=== PATIENT | female | born 1965 | race African-American/Black ===

== ENCOUNTER 2020-08-05 11:00 | Emergency (ER) | payer OTHER ==
[~2020-08-05] VITALS: Ht 165.1 cm; Wt 66.0 kg
[2020-08-05] MEDS ORDERED: CLON1TAB PO (11:18)
[2020-08-05] MEDS ORDERED: ESCI5TAB PO (11:18)
[2020-08-05] MEDS ORDERED: KETOROLAC 15MG/ML VIAL IV ONE (11:45)
[2020-08-05 12:10] LABS: BASOPHILS % 0.4 % (0.0-2.0); EOSINOPHILS % 2.1 % (0.0-5.0); HEMATOCRIT. 34.1 % (36.0-48.0); HEMOGLOBIN. 11.6 g/dL (12.0-16.0); LYMPHOCYTES % 44.6 % (20.0-50.0); MEAN CORPUSCULAR HEMOGLOBIN 29.1 pg (28.0-32.0); MEAN CORPUSCULAR VOLUME 85.3 fL (81.0-99.0); MEAN PLATELET VOLUME 7.5 fl (7.4-10.4); MONOCYTES % 7.4 % (2.0-8.0); NEUTROPHILS % 45.5 % (40.0-76.0); PLATELET 229 x1000/uL (130-400); RED BLOOD CELL COUNT 3.99 mill/uL (4.2-5.4); RED CELL DISTRIBUTION WIDTH 16.5 % (11.6-14.6)
[2020-08-05 12:13] LABS: CHLORIDE 109 mEq/L (98-107)
[2020-08-05] MEDS ORDERED: ACETAMINOPHEN 325MG TABLET PO ONE (13:45)
[2020-08-05] MEDS ORDERED: IBUP-2028 MT (13:55)
[2020-08-05 14:21] VITALS: BP 121/81
== END 2020-08-05 14:37 | disposition home or self-care (01) ==
LOC: ER 12:20
DX: R07.89 Other chest pain (principal); D64.9 Anemia, unspecified; F12.10 Cannabis abuse, uncomplicated; I49.9 Cardiac arrhythmia, unspecified; R06.02 Shortness of breath; Z98.890 Other specified postprocedural states; Z79.899 Other long term (current) drug therapy
CPT/HCPCS: 36415; 71045; 80053; 81025; 83880; 84484; 85025; 85379; 93005; 96374; 99285; J1885; Z7610